=== PATIENT | male | born 1970 | race Asian ===

== ENCOUNTER 2021-03-15 02:45 | Emergency (ER) | payer OTHER ==
[~2021-03-15] VITALS: Ht 167.6 cm; Wt 91.0 kg
[2021-03-15] MEDS ORDERED: IPRATROPIUM BROMIDE (0.02%) 0.5MG/2.5ML NEB HHN STA (04:09)
[2021-03-15] MEDS ORDERED: ALBUTEROL (0.083%) 2.5MG/3ML NEB HHN SCH (04:30)
[2021-03-15] MEDS ORDERED: AZIT250T12 MT (04:44)
[2021-03-15] MEDS ORDERED: IBUP-2028 MT (04:44)
[2021-03-15 04:53] VITALS: BP 129/67
== END 2021-03-15 05:08 | disposition home or self-care (01) ==
LOC: ER 02:45
DX: R06.02 Shortness of breath (principal); Z20.822 Contact with and (suspected) exposure to COVID-19
CPT/HCPCS: 71045; 87426; 94640; 99284; Z7610

== ENCOUNTER 2021-08-28 14:09 | Emergency (ER) | payer MEDICAID, OTHER ==
[~2021-08-28] VITALS: Ht 162.6 cm; Wt 91.0 kg
[~2021-08-28 14:09] MED LIST: AZIT250T12 MT; IBUP-2028 MT
[2021-08-28 18:42] LABS: BASOPHILS % 0.9 % (0.0-2.0); EOSINOPHILS % 1.1 % (0.0-5.0); HEMATOCRIT. 43.7 % (42.0-52.0); LYMPHOCYTES % 30.9 % (20.0-50.0); MEAN CORPUSCULAR HEMOGLOBIN 29.5 pg (28.0-32.0); MEAN CORPUSCULAR VOLUME 86.1 fL (80.0-94.0); MEAN PLATELET VOLUME 8.4 fl (7.4-10.4); MONOCYTES % 6.9 % (2.0-8.0); NEUTROPHILS % 60.2 % (40.0-76.0); PLATELET 206 x1000/uL (130-400); RED BLOOD CELL COUNT 5.08 mill/uL (4.7-6.1); RED CELL DISTRIBUTION WIDTH 13.7 % (11.6-14.6)
[2021-08-28 18:50] LABS: CHLORIDE 103 mEq/L (98-107)
[2021-08-28 20:07] VITALS: BP 119/68
[2021-08-28 20:51] LABS: HEMATOCRIT 46.2 % (42.0-52.0); HEMOGLOBIN 15.5 g/dL (14.0-18.0)
== END 2021-08-28 21:13 | disposition home or self-care (01) ==
LOC: ER 14:30
DX: K62.5 Hemorrhage of anus and rectum (principal)
CPT/HCPCS: 36415; 80053; 85014; 85018; 85025; 99283